=== PATIENT | female | born 1950 | race Caucasian/White ===

== ENCOUNTER 2016-06-04 08:06 | Outpatient (CLI) | payer MEDICARE, OTHER ==
--- NOTE | 2016-06-04 09:24 | Ultrasound Report ---
Ultrasound for residual fluid: Prevoid imaging of the urinary bladder demonstrates a normal contour. No filling defects identified. The estimated prevoid volume is 711 mL. The postvoid volume is approximately 64 mL.
== END 2016-06-04 08:07 | disposition home or self-care (01) ==
LOC: SPVWC 08:06
PROVIDERS: ATTEND Internal Medicine
DX: R10.2 Pelvic and perineal pain (principal)
CPT/HCPCS: 76857

== ENCOUNTER 2017-10-12 12:57 | Outpatient (CLI) | payer MEDICARE, OTHER ==
[2017-10-12 14:28] LABS: Blood Urea Nitrogen 27 mg/dL (7-17)
--- NOTE | 2017-10-12 14:42 | XRay Report ---
Bilateral hips with pelvis: Hip pain. AP and frog-lateral views of both hips with AP pelvis are included. The hip joints are well-maintained with good preservation of the joint spaces and articular margins. There is normal alignment. The bones are well mineralized. The SI joints are unremarkable. The visualized lower lumbar spine appears normal. No soft tissue abnormality identified. Impression: Normal exam.
--- NOTE | 2017-10-12 18:32 | Cat Scan Report ---
FINAL REPORT EXAM: CT ABDOMEN PELVIS WO/W CON HISTORY: HEMATURIA TECHNIQUE: Initially, CT of the abdomen and pelvis was performed without intravenous contrast. Subsequently, CT of the abdomen and pelvis was performed after the administration of intravenous contrast in the venous phase. Subsequently, CT of the abdomen and pelvis was performed in the delayed phase. Reconstructions were included in the coronal and sagittal planes. PRIORS: None. FINDINGS: Lower thorax: The lung bases are clear. The visualized portions of the heart are normal. There is a small hiatal hernia. Liver: The liver is diffusely low in attenuation. No intrahepatic biliary duct dilation. No focal hepatic lesions. Gallbladder/ biliary system: No cholelithiasis. The common bile duct appears nondilated. Spleen: No splenic lesions are seen. Pancreas: No pancreatic lesions are seen. No pancreatic duct dilation. Kidneys: No renal masses, cysts or hydronephrosis. There is scarring in the superior pole of the right kidney. No ureteral filling defects. No renal or ureteral calculi. Adrenal glands: No adrenal masses. Vasculature: Retroaortic left renal vein is noted. The abdominal aorta is nondilated. Atherosclerotic calculi are seen in the abdominal aorta. Lymph nodes: No enlarged lymph nodes are seen in the abdomen or pelvis. Several small retroperitoneal lymph nodes are likely reactive. Bowel, mesentery, peritoneum: No bowel obstruction. No free fluid or free air. The appendix is normal. Colonic diverticulosis is seen. No evidence of diverticulitis. No bowel wall thickening. Urinary bladder: No filling defects are seen. Pelvis: Uterus is absent. Abdominal wall: No abdominal wall hernia or other subcutaneous findings. Bones: Degenerative changes are seen in the spine. IMPRESSION: 1. Retroaortic left renal vein can be a cause of hematuria. 2. Scarring in the superior pole of the right kidney. 3. Hepatic steatosis. 4. Colonic diverticulosis without evidence of diverticulitis. 5. Hiatal hernia.
== END 2017-10-12 12:58 | disposition home or self-care (01) ==
LOC: XRAY 12:57
PROVIDERS: ATTEND Internal Medicine
DX: K57.90 Diverticulosis of intestine, part unspecified, without perforation or abscess without bleeding (principal); K44.9 Diaphragmatic hernia without obstruction or gangrene; K76.0 Fatty (change of) liver, not elsewhere classified; R31.9 Hematuria, unspecified; E78.00 Pure hypercholesterolemia, unspecified; J45.909 Unspecified asthma, uncomplicated; D64.9 Anemia, unspecified; Z91.010 Allergy to peanuts; Z88.6 Allergy status to analgesic agent; Z90.710 Acquired absence of both cervix and uterus
CPT/HCPCS: 36415; 73521; 74178; 82565; 84520; Q9967

== ENCOUNTER 2019-02-05 10:08 | Outpatient (CLI) | payer MEDICARE, OTHER ==
[2019-02-05 10:26] LABS: Basophils % (Auto) 0.3 % (0.0-1.8); Eosinophils # (Auto) 0.2 K/mm3 (0.0-0.4); Eosinophils % (Auto) 2.5 % (0.0-4.3); Hematocrit 39.3 % (30.3-42.9); Hemoglobin 13.3 gm/dl (10.1-14.3); Lymphocytes # (Auto) 1.9 K/mm3 (1.2-5.4); Lymphocytes % (Auto) 23.5 % (13.4-35.0); Mean Corpuscular HGB Conc 34 % (30-34); Mean Corpuscular Volume 95 fl (79-97); Monocytes # (Auto) 0.5 K/mm3 (0.0-0.8); Monocytes % (Auto) 5.7 % (0.0-7.3); Platelet Count 176 K/mm3 (140-440); Red Blood Count 4.14 M/mm3 (3.65-5.03); Red Cell Distribution Width 12.7 % (13.2-15.2)
[2019-02-05 10:41] LABS: Alanine Aminotransferase 23 units/L (7-56); Albumin 4.5 g/dL (3.9-5); BUN/Creatinine Ratio 34; Blood Urea Nitrogen 24 mg/dL (7-17); Calcium 9.3 mg/dL (8.4-10.2); Chol/HDL Ratio 2.86 %; HDL Cholesterol 68 mg/dL (40-59); Hemolysis Index 0; LDL Cholesterol,Direct 132 mg/dL (50-130)
[2019-02-08 12:01] LABS: Vitamin D, 25-OH, D2 <4 ng/mL
== END 2019-02-05 10:09 | disposition home or self-care (01) ==
LOC: LAB 10:08
PROVIDERS: ATTEND Internal Medicine
DX: Z00.00 Encounter for general adult medical examination without abnormal findings (principal); Z13.29 Encounter for screening for other suspected endocrine disorder; Z13.21 Encounter for screening for nutritional disorder; R73.09 Other abnormal glucose; E78.5 Hyperlipidemia, unspecified
CPT/HCPCS: 36415; 80053; 80061; 82306; 82607; 83036; 84443; 85025

== ENCOUNTER 2019-02-09 09:16 | Outpatient (CLI) | payer MEDICARE, OTHER ==
--- NOTE | 2019-02-12 09:36 | Mammography Report ---
DIGITAL SCREENING MAMMOGRAM WITH CAD, 02/09/2019 INDICATION: Routine screening mammography. TECHNIQUE: Digital bilateral 2D mammography was obtained in the craniocaudal and mediolateral obliq ue projections. This examination was interpreted with the benefit of Computer-Aided Detection analysi s. COMPARISON: None available. However, she indicated she had a previous mammogram at [facility]. FINDINGS: Breast Density: The breasts are heterogeneously dense, which may obscure small masses. Left asymmetries require comparison with a prior mammogram or additional imaging. There is no evidenc e of dominant mass, suspicious calcifications or architectural distortion in the right breast. IMPRESSION:Comparison with a previous mammogram is recommended. We will attempt to obtain a prior lino mogram for comparison. If we do not obtain a prior mammogram within 30 days, a revised report will be issued recommending a recall for additional imaging. Please be advised that the patient should not s chedule an appointment for return until adequate time (at least 2 weeks) has passed for us to obtain the prior mammogram. Follow up recommendation: Obtain prior study for comparison Category 0: Incomplete. Needs additional imaging evaluation and/or prior mammograms for comparison. A "normal" or negative report should not discourage follow up or biopsy of a clinically significant f inding. A written summary of these findings will be mailed to the patient. The patient will be entered into a mammography reporting system which will generate a reminder letter for the patient's next appointmen t at the appropriate interval. The [employer] recommends yearly mammograms starting at age 40 and continuing as l dawit as a woman is in good health. Breast MRI is recommended for women with an approximate 20-25% or greater lifetime risk of breast cancer, including women with a strong family history of breast or ova luigi cancer or who have been treated for Hodgkin's disease. Signer Name: Martínez Parada MD Signed: 02/12/2019 9:32 AM Workstation Name: [id number]
== END 2019-02-09 09:17 | disposition home or self-care (01) ==
LOC: MAMMO 09:16
PROVIDERS: ATTEND Internal Medicine
DX: Z12.31 Encounter for screening mammogram for malignant neoplasm of breast (principal)
CPT/HCPCS: 77067

== ENCOUNTER 2019-03-19 10:02 | Day surgery (SDC) | payer MEDICARE, OTHER ==
[2019-03-19] MEDS ORDERED: SODIUM CHLORIDE 0.9% 1000 ML 1,000 ML IV SCH (10:33)
--- NOTE | 2019-03-19 11:18 | Anesthesia Consultation ---
Anesthesia Consult and Med Hx Date of service: 03/19/19 - Airway Anesthetic Teeth Evaluation: Good ROM Head & Neck: Adequate Mental/Hyoid Distance: Adequate Mallampati Class: Class II Intubation Access Assessment: Probably Good - Pre-Operative Health Status ASA Pre-Surgery Classification: ASA2 Proposed Anesthetic Plan: MAC - Pulmonary Hx Smoking: No Hx Asthma: Yes (No recent attacks or use of inhalers) Hx Sleep Apnea: Yes (no CPAP) - Cardiovascular System Hx Hypertension: No Hx Heart Murmur: Yes - Central Nervous System Hx Psychiatric Problems: No - Gastrointestinal Hx Gastroesophageal Reflux Disease: Yes (Mild) - Endocrine Hx Renal Disease: No Hx Non-Insulin Dependent Diabetes: No - Other Systems Hx Cancer: No Hx Obesity: No
--- NOTE | 2019-03-19 11:19 | Anesthesia Day of Surgery ---
Anesthesia Day of Surgery - Day of Surgery Patient Examined: Yes Patient H&P Reviewed: Yes Patient is NPO: Yes
[2019-03-19] MEDS ORDERED: PROPOFOL 200 MG/20 ML VIAL IV ONE (12:03)
--- NOTE | 2019-03-19 12:26 | Procedure Note ---
Date of procedure: 03/19/19 Pre-op diagnosis: Colon Polyp Screeing/F/H/I Cancer (father had Pancreatic Cancer) Post-op diagnosis: other (No Colon Polyps noted/ Moderate, Left Colon and a few Proximal Colon Diverticular Disease noted/ No Internal Hemorrhoid) Procedure: Colonoscopy Anesthesia: MAC Surgeon: KASSI TIPTON Estimated blood loss: none Pathology: none Condition: stable Disposition: same day (Resume home medication and follow up in 1 to 2 weeks ([phone]).)
[2019-03-19] MEDS ORDERED: LIDOCAINE MPF (2%) 20 MG/1 ML VIAL 5 ML ONE (12:30)
--- NOTE | 2019-03-19 12:32 | Operative Report ---
PROCEDURE: Colonoscopy. INDICATIONS: This is a 69-year-old female with a family history of cancer. The patient's father had pancreatic cancer. The patient has underlying history of asthma. Colonoscopy was done as part of colon polyp screening. DESCRIPTION OF PROCEDURE: Procedure was done after getting informed consent with MAC anesthesia. Initial rectal exam was unremarkable. Instrument was passed through the rectum onto the cecum, which was identified with ileocecal valve and the appendiceal orifice. Visualization was fair. There were a few scattered diverticula noted in the proximal colon. The transverse colon showed normal mucosa and moderate diverticular disease some being deep was noted in the left colon and the rectum appeared normal on the retroverted view. ASSESSMENT: Colon polyp screening, family history of cancer. The patient's father had pancreatic cancer. Moderate left colon diverticular disease and a few scattered proximal colon, diverticula. No colon polyps noted. No internal hemorrhoids. Prep was fair. PLAN: To encourage the patient to take fiber supplements. Otherwise, resume home medication. Follow up in the office in 1-2 weeks' time. Procedure was done in the GI lab with assistance of the GI lab team, which included RNNancy and Neva HINTON, who acted as a tech and with assistance of anesthesia. JOB# [id number] URBAN/LAUREN
[2019-03-19 12:53] VITALS: BP 122/76
--- NOTE | 2019-03-19 13:13 | Post Anesthesia Evaluation ---
- Post Anesthesia Evaluation Patient Participated: Yes Airway Patent: Yes Stable Respiratory Function: Yes Nausea/Vomiting: No Temp > 96.8F: Yes Pain Manageable: Yes Adequeate Hydration: Yes Anesthesia Complications: No Block Receding Appropriately: Not Applicable Patient on Ventilator: No
== END 2019-03-19 10:03 | disposition home or self-care (01) ==
LOC: GIO 10:02
DX: Z12.11 Encounter for screening for malignant neoplasm of colon (principal); K57.30 Diverticulosis of large intestine without perforation or abscess without bleeding; E78.00 Pure hypercholesterolemia, unspecified; J45.909 Unspecified asthma, uncomplicated; G47.30 Sleep apnea, unspecified; K21.9 Gastro-esophageal reflux disease without esophagitis; Z98.51 Tubal ligation status; Z80.0 Family history of malignant neoplasm of digestive organs; Z80.8 Family history of malignant neoplasm of other organs or systems; Z88.6 Allergy status to analgesic agent; Z88.8 Allergy status to other drugs, medicaments and biological substances; Z79.899 Other long term (current) drug therapy; Z90.710 Acquired absence of both cervix and uterus; Z98.890 Other specified postprocedural states
CPT/HCPCS: G0105; J2704; J7030

== ENCOUNTER 2020-08-05 09:31 | Outpatient (CLI) | payer MEDICARE, OTHER ==
--- NOTE | 2020-08-05 13:18 | Mammography Report ---
DIGITAL DIAGNOSTIC MAMMOGRAM CONVENTIONAL, 08/05/2020 CLINICAL INFORMATION / INDICATION: Patient presents for evaluation of diffuse bilateral breast pain. TECHNIQUE: Digital bilateral mammographic imaging was performed. COMPARISON: Prior mammograms 02/09/2019 and 11/12/2015 FINDINGS: Breast Density: The breasts are heterogeneously dense, which may obscure small masses. No dominant mass, suspicious calcifications or architectural distortion in either breast. There has been no significant change compared with the prior examinations. There is no mammographic a bnormality to account for diffuse bilateral breast pain. IMPRESSION: 1. No mammographic abnormality to account for diffuse bilateral breast pain, therefore clinical corre lation is recommended. Follow up recommendation: Routine yearly BI-RADS Category 2: Benign. A "normal" or negative report should not discourage follow up or biopsy of a clinically significant f inding. A written summary of these findings will be mailed to the patient. The patient will be entered into a mammography reporting system which will generate a reminder letter for the patient's next appointmen t at the appropriate interval. According to the [employer], yearly mammograms are recommended starting at age 40 and continuing as long as a woman is in good health. Breast MRI is recommended for women with an mya roximately 20-25% or greater lifetime risk of breast cancer, including women with a strong family his tory of breast or ovarian cancer and women who have been treated for Hodgkin's disease. Signer Name: Aruna Gaitan MD Signed: 08/05/2020 1:14 PM Workstation Name: [id number]
== END 2020-08-05 09:32 | disposition home or self-care (01) ==
LOC: MAMMO 09:31
PROVIDERS: ATTEND Internal Medicine
DX: R92.8 Other abnormal and inconclusive findings on diagnostic imaging of breast (principal)
CPT/HCPCS: 77066

== ENCOUNTER 2021-09-07 10:07 | Outpatient (CLI) | payer MEDICARE, OTHER ==
--- NOTE | 2021-09-07 13:52 | Mammography Report ---
DEXA BONE DENSITY SCAN INDICATION: SCREENING FOR OSTEOPOROSIS, post-menopausal COMPARISON: None available. LUMBAR SPINE (L1-L4): Bone mineral density (BMD) is 0.886 g/cm2. T-score is -1.5 (standard deviations of Young Adult mean). LEFT FEMORAL NECK: Bone mineral density (BMD) is 0.629 g/cm2. T-score is -2.0 (standard deviations of Young Adult mean). IMPRESSION: 1. WHO Classification: Osteopenia. Fracture Risk: Increased. Signer Name: Cornelius Rg MD Signed: 09/07/2021 1:48 PM Workstation Name: [id number]
--- NOTE | 2021-09-08 11:47 | Mammography Report ---
DIGITAL SCREENING MAMMOGRAM WITH CAD, 09/07/2021 CLINICAL INFORMATION / INDICATION: Routine screening mammography TECHNIQUE: Digital 2D mammography was obtained in the craniocaudal and mediolateral oblique projectio ns. This examination was interpreted with the benefit of Computer-Aided Detection analysis. COMPARISON: 02/09/2019 FINDINGS: Breast Density: The breasts are heterogeneously dense, which may obscure small masses. No dominant mass, suspicious calcifications, or architectural distortion in either breast. Left density is stable. IMPRESSION: No mammographic evidence of malignancy. Follow up recommendation: Routine yearly screening mammogram. BI-RADS Category 2: BENIGN. A "normal" or negative report should not discourage follow up or biopsy of a clinically significant f inding. A written summary of these findings will be mailed to the patient. The patient will be entered into a mammography reporting system which will generate a reminder letter for the patient's next appointmen t at the appropriate interval. The [employer] recommends yearly mammograms starting at age 40 and continuing as l dawit as a woman is in good health. Breast MRI is recommended for women with an approximate 20-25% or greater lifetime risk of breast cancer, including women with a strong family history of breast or ova luigi cancer or who have been treated for Hodgkin's disease. Signer Name: Cornelius Rg MD Signed: 09/08/2021 7:53 AM Workstation Name: [id number]
== END 2021-09-07 10:08 | disposition home or self-care (01) ==
LOC: MAMMO 10:07
PROVIDERS: ATTEND Internal Medicine
DX: Z12.31 Encounter for screening mammogram for malignant neoplasm of breast (principal); Z13.820 Encounter for screening for osteoporosis; M85.89 Other specified disorders of bone density and structure, multiple sites
CPT/HCPCS: 77067; 77080